=== PATIENT | female | born 1945 | race Caucasian/White ===

== ENCOUNTER → 2018-04-19 | Outpatient (CLI) | payer MEDICARE ==
[~2018-04-19] MED LIST: ALDACTONE25 MG PO; ALPRAZOLAM; ASPIR 8181 MG PO; AZITHROMYCIN 2250 MG PO; CEFTIN 250 MG250 MG PO; CEFTIN500 MG PO; CEFUROXIME500 MG PO; COZAAR 25 MG TA25 M1 PO; HYDROCODONE-AP1 EAC6 PO; MACROBID 100 M100 M1 PO; PACERONE 200 M200 M1 PO; PREDNISONE 10 M10 MG PO; PROTONIX40 M1 PO; REFRESH CLASSI1 EACH OPHTHALMIC; TENORMIN PO; TOPROL XL100 MG PO; VENTOLIN HFA 1818 GM INH; VICODIN 5-3001 EACH; XANAX 0.5 MG0.5 MG PO
== END ==
LOC: M.RAD 11:00
DX: Z12.31 Encounter for screening mammogram for malignant neoplasm of breast (principal)

== ENCOUNTER 2020-08-07 09:48 | Emergency (ER) | payer MEDICARE ==
[~2020-08-07] VITALS: Ht 167.6 cm; Wt 75.8 kg
[2020-08-07] MEDS ORDERED: TOPROL XL100 MG PO (10:08)
[2020-08-07] MEDS ORDERED: PERCOCET 5-3251 EACH PO (10:26)
[2020-08-07 10:35] VITALS: BP 160/82
== END 2020-08-07 10:41 | disposition home or self-care (01) ==
LOC: M.ERS 09:48
DX: B02.9 Zoster without complications (principal); L25.9 Unspecified contact dermatitis, unspecified cause; M79.7 Fibromyalgia; K21.9 Gastro-esophageal reflux disease without esophagitis; Z79.899 Other long term (current) drug therapy; Z88.1 Allergy status to other antibiotic agents; Z88.6 Allergy status to analgesic agent; Z88.0 Allergy status to penicillin; Z88.2 Allergy status to sulfonamides

== ENCOUNTER 2020-08-18 09:31 | Inpatient (IN) | payer MEDICARE ==
[~2020-08-18] VITALS: Ht 167.6 cm; Wt 69.4 kg
[~2020-08-18 09:31] MED LIST changes: +PERCOCET 5-3251 EACH PO
[2020-08-18 09:32] VITALS: BP 127/67
[2020-08-18 10:19] LABS: ABSOLUTE LYMPHOCYTES 0.9 thou/uL (0.8-5.3); ABSOLUTE MONOCYTES 0.7 thou/uL (0.0-1.2); ABSOLUTE NEUTROPHILS 4.7 thou/uL (1.6-8.1); BASOPHILS 0.3 %; EOSINOPHILS 0.1 %; HEMATOCRIT 37.8 % (37.0-47.0); HEMOGLOBIN 13.3 gm/dL (12.0-15.0); MCH 36.3 pg (26.0-34.0); MCHC 35.2 g/dL (28.0-37.0); MCV 103.1 fL (80.0-100.0); MONOCYTES 10.5 %; MPV 9.1 fl. (7.2-11.1); NUCLEATED RBCS 0 /100WBC; PLATELET COUNT* 154 thou/uL (150-400); POLYS 74.1 %; RBC 3.66 mil/uL (4.20-5.00); RDW-CV 13.1 % (10.5-14.5); WBC 6.3 thou/uL (4.0-11.0)
[2020-08-18 10:24] LABS: CALCIUM 8.7 mg/dL (8.5-10.1); POTASSIUM 3.9 mmol/L (3.5-5.1)
[2020-08-18 10:31] LABS: ALBUMIN 3.2 g/dL (3.4-5.0); TOTAL BILIRUBIN 0.8 mg/dL (<0.1-1.0); TOTAL PROTEIN 8.6 g/dL (6.4-8.2)
--- NOTE | 2020-08-18 15:24 | NUR ---
PT AMBULATED TO BATHROOM WITH ASSISTANCE, SNACK PROVIDED PER REQUEST AND FOLLOWING DIET ORDERS.
[2020-08-18 16:00] VITALS: BP 143/63
--- NOTE | 2020-08-18 16:46 | EKG ---
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 : 1945 Requested By: Matthieu Fleming Order Number: [id number] MD: Kwesi Sims Measurements Intervals [place] Rate: 71 P: 35 NM: 192 QRS: -35 QRSD: 157 T: QT: 391 QTc: 425 Interpretive Statements Sinus rhythm Left bundle branch block Compared to ECG 09/07/2017 07:37:39 Left bundle-branch block now present ST (T wave) deviation persists Electronically Signed On 08-18-2020 16:46:17 [employer]BER by Kwesi Sims [email or web address] <ELECTRONICALLY SIGNED> By: Kwesi Sims MD, FACC 08/18/20 1646 1009 1009 Kwesi Sims MD, FAC /EPI
[2020-08-18 17:42] VITALS: BP 139/60
--- NOTE | 2020-08-18 17:44 | NUR ---
REDD HELMS NOTIFIED OF PT TRANSFER TO ROOM 201 PER PT REQUEST.
[2020-08-19] VITALS: BP 110/64
[2020-08-19 03:29] LABS: ABSOLUTE LYMPHOCYTES 1.1 thou/uL (0.8-5.3); ABSOLUTE MONOCYTES 0.7 thou/uL (0.0-1.2); ABSOLUTE NEUTROPHILS 4.5 thou/uL (1.6-8.1); BASOPHILS 0.3 %; EOSINOPHILS 0.2 %; HEMATOCRIT 38.6 % (37.0-47.0); HEMOGLOBIN 13.1 gm/dL (12.0-15.0); LYMPHOCYTES 17.4 %; MCH 35.1 pg (26.0-34.0); MONOCYTES 11.6 %; MPV 8.5 fl. (7.2-11.1); NUCLEATED RBCS 0 /100WBC; PLATELET COUNT* 142 thou/uL (150-400); POLYS 70.5 %; RBC 3.74 mil/uL (4.20-5.00); RDW-CV 12.9 % (10.5-14.5); WBC 6.4 thou/uL (4.0-11.0)
[2020-08-19 03:38] LABS: CALCIUM 9.2 mg/dL (8.5-10.1)
[2020-08-19 04:00] VITALS: BP 152/68
[2020-08-19 07:20] VITALS: BP 136/57
[2020-08-19 09:14] VITALS: BP 136/57
[2020-08-19 10:42] LABS: APTT 25.8 Seconds (25.0-31.3); INR 1.1; PROTIME 11.2 Seconds (9.20-11.50)
--- NOTE | 2020-08-19 11:00 | NUR ---
Pt is A&O. Resides at home alone, dtr lives next door. Independent with ADLs. Granddtr assists with IADLs. Pt uses a cane for mobility. Hx of HH. No hx of SNF. Plan kyphoplasty today, Pt hopes to be able to return home at dc, with HH. Therapies ordered. CM to following re: dispo needs.
[2020-08-19 16:43] VITALS: BP 113/50
[2020-08-19 20:00] VITALS: BP 139/67
[2020-08-20] VITALS (8 sets, daily range): BP systolic 106–142; BP diastolic 56–72
--- NOTE | 2020-08-20 06:59 | NUR ---
ASSUMED PT CARE AT APPROX 1930. PT IS AWAKE AND ORIENTED X4. PT IS SR WITH BBB ON THE CLERICAL ASSISTANT. PT C/O BACK PAIN AND RIGHT SHOULDER PAIN RELIEVED BY PAIN MEDS GIVEN PER DEC. PT IS ABLE TO SLEEP THROUGHOUT THIS SHIFT. CALL LIGHT WITHIN REACH. HOURLY ROUNDING DONE FOR PT SAFETY. HIGH FALL PRECAUTIONS IN PLACE.
--- NOTE | 2020-08-20 13:02 | NUR ---
Pt discharging home today, HH orders faxed to [facility]
--- NOTE | 2020-08-20 17:13 | NUR ---
DISCHARGE EDUCATION PROVIDED TO THE PT AND DAUGHTER, COMMUNICATES UNDERSTANDING. PHYSICAL THERARY RECOMMENDED WHEELCHAIR, GOT ONE BEFORE DISCHARGE. PT LEFT THE UNIT AT 1635.
--- NOTE | 2020-08-20 17:36 | NUR ---
PT. DISCHARGED TO HOME WITH HOME HEALTH PRIOR TO O.T. EVAL. PLEASE ORDER FURTHER O.T. SERVICES IF NEEDED.
== END 2020-08-20 16:40 | disposition home health service (06) | DRG 516 ==
LOC: M.ERS 09:31 → M.TBA-ER 13:21 → M.2W 13:21
PROVIDERS: Emergency Medicine Emergency Medical Services; Radiology Diagnostic Radiology; ADMIT Internal Medicine; ATTEND Internal Medicine
PROC: 0QU03JZ Supplement Lumbar Vertebra with Synthetic Substitute, Percutaneous Approach (ICD-10-PCS; principal; 2020-08-18)
PROC: 0QS03ZZ Reposition Lumbar Vertebra, Percutaneous Approach (ICD-10-PCS; principal; 2020-08-18)
DX: M80.08XA Age-related osteoporosis with current pathological fracture, vertebra(e), initial encounter for fracture (principal); E44.1 Mild protein-calorie malnutrition; I42.9 Cardiomyopathy, unspecified; M79.7 Fibromyalgia; R55 Syncope and collapse; K21.9 Gastro-esophageal reflux disease without esophagitis; Z96.1 Presence of intraocular lens; Z20.828 Contact with and (suspected) exposure to other viral communicable diseases; Z98.42 Cataract extraction status, left eye; Z98.41 Cataract extraction status, right eye; Z95.0 Presence of cardiac pacemaker; Z90.49 Acquired absence of other specified parts of digestive tract; Z79.899 Other long term (current) drug therapy; Z88.1 Allergy status to other antibiotic agents; Z88.2 Allergy status to sulfonamides; Z88.0 Allergy status to penicillin; Z88.8 Allergy status to other drugs, medicaments and biological substances; Z87.891 Personal history of nicotine dependence; Z68.24 Body mass index [BMI] 24.0-24.9, adult

== ENCOUNTER → 2020-09-09 | Emergency (ER) | payer MEDICARE ==
[~2020-09-09] VITALS: Ht 167.6 cm; Wt 72.6 kg
[~2020-09-09] MED LIST changes: +NORCO 5-325 TA1 EAC2 PO
[2020-09-09 11:52] VITALS: BP 117/60
== END ==
LOC: M.ERS 11:43
DX: M54.5 Low back pain (principal); M79.7 Fibromyalgia; K21.9 Gastro-esophageal reflux disease without esophagitis; Z90.49 Acquired absence of other specified parts of digestive tract; Z79.899 Other long term (current) drug therapy; Z88.1 Allergy status to other antibiotic agents; Z88.6 Allergy status to analgesic agent; Z88.0 Allergy status to penicillin; Z88.8 Allergy status to other drugs, medicaments and biological substances

== ENCOUNTER 2021-02-10 09:55 | Inpatient (IN) | payer MEDICARE ==
[~2021-02-10] VITALS: Ht 167.6 cm; Wt 67.6 kg
[2021-02-10 10:10] VITALS: BP 107/80
[2021-02-10 11:49] LABS: URINE BILIRUBIN NEGATIVE (Negative); URINE BLOOD TRACE (Negative); URINE CLARITY CLEAR; URINE COLOR YELLOW; URINE GLUCOSE-RANDOM NEGATIVE (Negative); URINE KETONES NEGATIVE (Negative); URINE PROTEIN NEGATIVE (Negative); URINE SPECIFIC GRAVITY 1.015 (1.005-1.030); URINE UROBILINOGEN 0.2 E.U./dl (0.2-1.0)
[2021-02-10 11:56] LABS: URINE LEUKOCYTES-REFLEX 3+ (Negative); URINE NITRITE-REFLEX POSITIVE (Negative)
[2021-02-10 12:08] LABS: SQUAMOUS 0-3 Few /LPF (0-3)
[2021-02-10 12:09] LABS: BACTERIA-REFLEX >30 Many /HPF (None Seen); CASTS None Seen /LPF (None Seen); CRYSTALS None Seen /LPF (None Seen); URINE RBC 0-2 Rare /HPF (0-2); URINE WBC-REFLEX 6-15 Few /HPF (0-5)
[2021-02-10 12:50] LABS: ABSOLUTE LYMPHOCYTES 1.3 thou/uL (0.8-5.3); ABSOLUTE MONOCYTES 0.6 thou/uL (0.0-1.2); ABSOLUTE NEUTROPHILS 3.1 thou/uL (1.6-8.1); BASOPHILS 0.5 %; EOSINOPHILS 0.3 %; HEMATOCRIT 37.1 % (37.0-47.0); HEMOGLOBIN 12.4 gm/dL (12.0-15.0); LYMPHOCYTES 26.6 %; MCH 34.4 pg (26.0-34.0); MCHC 33.4 g/dL (28.0-37.0); MCV 102.9 fL (80.0-100.0); MONOCYTES 11.1 %; MPV 8.7 fl. (7.2-11.1); NUCLEATED RBCS 0 /100WBC; PLATELET COUNT* 173 thou/uL (150-400); POLYS 61.5 %; RDW-CV 13.2 % (10.5-14.5)
[2021-02-10 13:15] LABS: CALCIUM 8.7 mg/dL (8.5-10.1); CREATININE 1.1 mg/dL (0.6-1.3); POTASSIUM 4.2 mmol/L (3.5-5.1); TOTAL BILIRUBIN 0.7 mg/dL (<0.1-1.0); TOTAL PROTEIN 7.9 g/dL (6.4-8.2)
[2021-02-10 16:12] VITALS: BP 128/68
--- NOTE | 2021-02-10 19:32 | NUR ---
Pt arrived to floor around 1630. Pt A&O x4, vital signs stable. Pt pleasant with staff. Pt denies any pain at this time. Pt is noting an urgency/frequency feeling. Bed in low position, call light within reach.
[2021-02-10 19:35] VITALS: BP 108/58
[2021-02-11 03:53] LABS: HEMATOCRIT 36.5 % (37.0-47.0); MCH 34.2 pg (26.0-34.0); MCHC 32.8 g/dL (28.0-37.0); MCV 104.1 fL (80.0-100.0); MPV 8.3 fl. (7.2-11.1); RBC 3.5 mil/uL (4.20-5.00); RDW-CV 13.4 % (10.5-14.5); WBC 3.7 thou/uL (4.0-11.0)
[2021-02-11 04:12] LABS: ALBUMIN 2.8 g/dL (3.4-5.0); CALCIUM 8.6 mg/dL (8.5-10.1); CREATININE 1.1 mg/dL (0.6-1.3); POTASSIUM 4.5 mmol/L (3.5-5.1); TOTAL BILIRUBIN 0.6 mg/dL (<0.1-1.0); TOTAL PROTEIN 7.3 g/dL (6.4-8.2)
--- NOTE | 2021-02-11 04:16 | NUR ---
PATIENT HAS REMAINED ALERT (HARD OF HEARING ) AND ORIENTED X 4 THROUGHOUT THE SHIFT AND RESTING QUIETLY AT HOURLY ROUNDS. MEDICATED WITH FIRST DOSE SCHEDULED MIRALAX AT HS. NO BM'S OF THIS WRITING. CONTINUES TO HAVE SOME BURNING WITH URINATION AND RIGHT FLANK PAIN POST VOID. DECLINED OFFER OF TYLENOL FOR PAIN SHE STATES IT MAKES HER SKIN HURT. UP INDEPENDENTLY TO BR WITH STEADY GAIT. OTHER MEDS PER ORDER. VITAL SIGNS STABLE. CONTINUE TO MONITOR.
[2021-02-11 07:40] VITALS: BP 119/59
--- NOTE | 2021-02-11 14:10 | NUR ---
Pt is A&O. Resides at home alone. Independent. Supportive family. Dtr lives next door. Pt has a walker and cane at home. Hx of [facility]. No hx of SNF. Anticipate dc to home tomorrow, no needs anticipated.
[2021-02-11 16:43] VITALS: BP 140/70
--- NOTE | 2021-02-11 18:34 | NUR ---
PT ALERT AND ORIENTED. PT GIVEN TYLENOL FOR BACK PAIN. IV REMAINS S/L. PT ON RA. NO BM THIS SHIFT. WILL CONTINUE TO MONITOR.
[2021-02-11 20:00] VITALS: BP 119/61
[2021-02-12 08:24] VITALS: BP 135/65
[2021-02-12] MEDS ORDERED: DOXYCYCLINE 10100 MG PO (11:28)
[2021-02-12 12:20] VITALS: BP 135/65
--- NOTE | 2021-02-12 13:10 | NUR ---
PATIENT DISCHARGED AT THIS TIME VIA WHEELCHAIR TO PRIVATE VEHICLE ACCOMPANIED BY NURSE. IV'S DC'D, SITE COVERED WITH COTTON AND BANDAIDS, PATIENT TOLERATED WITHOUT DIFFICULTIES. DISCHARGE NOTES REVIEWED AT THIS TIME, PATIENT ACKNOWLEDGE UNDERSTANDING. NO QUESTIONS OR CONCERNS VOICED.
== END 2021-02-12 13:13 | disposition home or self-care (01) | DRG 690 ==
LOC: M.ERS 09:55 → M.TBA-ER 14:31 → M.ORTHSURG 14:31
PROVIDERS: Nurse Practitioner Family; ADMIT Internal Medicine; ATTEND Internal Medicine
DX: N30.00 Acute cystitis without hematuria (principal); I42.9 Cardiomyopathy, unspecified; B96.89 Other specified bacterial agents as the cause of diseases classified elsewhere; K59.00 Constipation, unspecified; M54.9 Dorsalgia, unspecified; Z20.822 Contact with and (suspected) exposure to COVID-19; K21.9 Gastro-esophageal reflux disease without esophagitis; M79.7 Fibromyalgia; M32.9 Systemic lupus erythematosus, unspecified; Z95.0 Presence of cardiac pacemaker; Z98.49 Cataract extraction status, unspecified eye; Z88.6 Allergy status to analgesic agent; Z88.1 Allergy status to other antibiotic agents; Z88.0 Allergy status to penicillin; Z88.8 Allergy status to other drugs, medicaments and biological substances; Z79.899 Other long term (current) drug therapy; Z60.2 Problems related to living alone